=== PATIENT | male | born 1960 | race African-American/Black ===

== ENCOUNTER 2022-04-17 19:56 | Emergency (ER) | payer BC ==
[2022-04-17] MEDS ORDERED: methylPREDNISolone Sod Succ/PF 125 MG/2 ML VIAL ONE ×2 (20:26→20:29)
== END 2022-04-17 21:25 | disposition home or self-care (01) ==
LOC: ERS 19:56
DX: J45.901 Unspecified asthma with (acute) exacerbation (principal); I10 Essential (primary) hypertension; J44.9 Chronic obstructive pulmonary disease, unspecified; F17.220 Nicotine dependence, chewing tobacco, uncomplicated; Z79.899 Other long term (current) drug therapy
CPT/HCPCS: 71045; 96372; J2930; J7620

== ENCOUNTER 2022-05-16 21:01 | Emergency (ER) | payer BC ==
[2022-05-16] MEDS ORDERED: methylPREDNISolone Sod Succ/PF 125 MG/2 ML VIAL ONE (21:33)
== END 2022-05-16 23:15 | disposition home or self-care (01) ==
LOC: ERS 21:01
DX: J44.9 Chronic obstructive pulmonary disease, unspecified (principal); I10 Essential (primary) hypertension; D64.9 Anemia, unspecified; K21.9 Gastro-esophageal reflux disease without esophagitis; Z79.899 Other long term (current) drug therapy
CPT/HCPCS: 71045; 94640; 96374; J2930; J7620

== ENCOUNTER 2022-06-21 14:02 | Outpatient (CLI) | payer BC | END 2022-06-21 14:03 | disposition home or self-care (01) | LOC: RAD 14:02 | PROVIDERS: ATTEND Internal Medicine Critical Care Medicine | DX: R06.00 Dyspnea, unspecified (principal) | CPT/HCPCS: 71046 ==

== ENCOUNTER 2023-12-30 04:39 | Inpatient (IN) | payer BC, OTHER, SELFPAY ==
[2023-12-30] MEDS ORDERED: Ipratropium/Albuterol 3 ML NEB ONE ×2 (04:50→11:22)
[2023-12-30] MEDS ORDERED: methylPREDNISolone Sod Succ/PF 125 MG/2 ML VIAL ONE (04:55)
[2023-12-30 05:20] LABS: #Monocytes 0.4 thou/uL (0.11-0.59); #Neutrophils 11.7 thou/uL (1.40-6.50); %Basophils 0.3 % (0.0-1.0); %Eosinophils 0.2 % (0.0-10.0); %Lymphocytes 2.1 % (21.0-51.0); %Monocytes 3.5 % (0.0-10.0); %Neutrophils 93.6 % (42.0-75.0); Hematocrit 33.3 % (42.0-52.0); Hemoglobin 10.4 g/dL (14.0-18.0); Mean Corpuscular HGB CONC 31.2 g/dL (32.0-36.0); Mean Corpuscular Hemoglobin 24.2 pg (27.0-31.0); Mean Corpuscular Volume 77.4 fl (78.0-98.0); Mean Platelet Volume 9.7 fL (7.4-10.4); Platelet Count 271 10x3/uL (130-400); RBC Distribution Width 16.6 % (11.5-14.5); White Blood Cell (WBC) Count 12.5 10x3/uL (4.8-10.8)
[2023-12-30] MEDS ORDERED: Magnesium 2 GM/50 ML BAG (IN WATER) ONE (05:46)
[2023-12-30] MEDS ORDERED: Albuterol 2.5 MG (3 mL) NEB ONE (05:47)
[2023-12-30] MEDS ORDERED: Ipratropium Bromide 2.5 ml Neb ONE (05:47)
[2023-12-30 05:50] LABS: ALT (SGPT) 16 U/L (8-55); AST (SGOT) 38 U/L (5-34); Albumin 4.3 g/dL (3.4-4.8); Alkaline Phosphatase 71 U/L (40-110); Anion Gap 13 mmol/L (10-20); BUN (Urea Nitrogen) 11 mg/dL (8.4-25.7); Bilirubin, Total 0.6 mg/dL (0.2-1.2); Calc. Creatinine Clearance 0 mL/min (70-130); Calcium 9.3 mg/dL (7.8-10.44); Carbon Dioxide 23 mmol/L (23-31); Chloride 105 mmol/L (98-107); Estimated GFR 78; Globulin 4.1 g/dL (2.4-3.5); Glucose 132 mg/dL (80-115); Potassium 4.3 mmol/L (3.5-5.1); Protein, Total 8.4 g/dL (5.8-8.1); Sodium 137 mmol/L (136-145)
[2023-12-30 07:24] LABS: Analyzer IN Cardio ER; Chloride (VBG) 104 mmol/L (98-106)
[2023-12-30] MEDS ORDERED: Ondansetron ODT 4 MG TAB PO PRN (07:52)
[2023-12-30] MEDS ORDERED: Ondansetron PF 4 MG/2 ML Vial IVP PRN (07:52)
[2023-12-30] MEDS ORDERED: Acetaminophen 325 MG (10.15 ML) UDCUP PO PRN (07:52)
[2023-12-30] MEDS ORDERED: Acetaminophen 650 MG Suppository PR PRN (07:52)
[2023-12-30] MEDS ORDERED: Ipratropium/Albuterol 3 ML NEB NEB PRN (07:52)
[2023-12-30] MEDS ORDERED: Azithromycin 500 MG in Sodium Chloride 0.9% 250 ML 250 ML IVPB SCH (08:00)
[2023-12-30 08:25] VITALS: BMI 27.6
[2023-12-30 08:57] LABS: SARS-CoV-2 NAA Rapid Test Not Detected (NotDetected)
[2023-12-30] MEDS ORDERED: Vancomycin 1 GM in Premix 1 BAG IVPB SCH (09:00)
[2023-12-30 09:16] LABS: Actual Bicarbonate (HCO3a) 22.7 mEq/L (22-28); Analyzer IN Cardio ER; Base Excess (BEa) -1.4 mEq/L (-2.0 to +3.0); CO2 Tension 35.7 mmHg (35.0-45.0); Calcium, Ionized (arterial) 1.16 mmol/L (1.12-1.30); Carboxyhemoglobin (COHb) 0.3 gm% (0.0-3.0); Hematocrit-ABG 32 % (42.0-52.0); Hemoglobin (Hb) 10.8 g/dL (14.0-18.0); Potassium - ABG Lab 3.52 mmol/L (3.70-5.30); pH, Arterial 7.421 (7.35-7.45)
[2023-12-30 09:19] LABS: O2 Tension (PaO2), arterial 55.1 mmHg (> 80.0)
[2023-12-30 09:20] LABS: ALV-art Gradient 149.825 mmHg (0-20); Puncture Site RRA
[2023-12-30] MEDS ORDERED: Lisinopril 20 MG TAB ONE (09:51)
[2023-12-30] MEDS ORDERED: Enoxaparin 40 MG (0.4 mL) SYRINGE ONE (09:52)
[2023-12-30] MEDS ORDERED: Sodium Chloride 0.9% 100 ML ONE (09:52)
[2023-12-30] MEDS ORDERED: cefTRIAXone (ROCEPHIN) 2 GM VIAL ONE (09:52)
[2023-12-30] MEDS: cefTRIAXone\\ROCEPHIN 1 GM in Sodium Chloride 0.9% 100 ML IVPB SCH (09:58)
[2023-12-30] MEDS: cefTRIAXone\\ROCEPHIN 2 GM in Sodium Chloride 0.9% 100 ML IVPB SCH (09:58)
[2023-12-30] MEDS: methylPREDNISolone Sod Succ/PF 125 MG/2 ML VIAL IVP SCH (09:59)
[2023-12-30] MEDS: Enoxaparin 40 MG (0.4 mL) SYRINGE SC SCH (09:59)
[2023-12-30] MEDS: Lisinopril 20 MG TAB PO SCH (10:01)
[2023-12-30] MEDS ORDERED: Oseltamivir 75 MG CAP ONE (10:28)
[2023-12-30] MEDS: Oseltamivir 75 MG CAP PO SCH ×2 (10:35→20:36)
[2023-12-30 11:09] LABS: Actual Bicarbonate (HCO3a) 20.3 mEq/L (22-28); Analyzer IN Cardio ER; Base Excess (BEa) -3.1 mEq/L (-2.0 to +3.0); Calcium, Ionized (arterial) 1.14 mmol/L (1.12-1.30); Carboxyhemoglobin (COHb) 0.3 gm% (0.0-3.0); Hematocrit-ABG 30 % (42.0-52.0); Hemoglobin (Hb) 10.3 g/dL (14.0-18.0); O2 Tension (PaO2), arterial 110.8 mmHg (> 80.0); Potassium - ABG Lab 3.56 mmol/L (3.70-5.30); pH, Arterial 7.435 (7.35-7.45)
[2023-12-30 11:12] LABS: Puncture Site RRA
[2023-12-30] MEDS: Vancomycin (BATCH) 1.25 GM in Premix 1 BAG IVPB SCH (11:15)
[2023-12-30] MEDS: Ipratropium/Albuterol 3 ML NEB NEB SCH ×2 (11:20→15:13)
[2023-12-30] MEDS ORDERED: hydrALAZINE 25 MG TAB ONE (12:00)
[2023-12-30] MEDS ORDERED: Non-Formulary Item 1 EACH (Hydralazine Hcl [Hydralazine Hcl] 50 MG Tablet) PO SCH (12:00)
[2023-12-30] MEDS: hydrALAZINE 25 MG TAB PO SCH (12:11)
[2023-12-30] MEDS ORDERED: Ipratropium/Albuterol 3 ML NEB NEB SCH (13:00)
[2023-12-30] MEDS: Gabapentin 300 MG CAP PO SCH (15:15)
[2023-12-30] MEDS: HYDROCHLOROTHIAZIDE PO SCH (16:08)
[2023-12-30] MEDS: [UNRECOGNIZED DRUG - OTHER] PO SCH (16:08)
[2023-12-30] MEDS: ENALAPRIL PO SCH (16:08)
[2023-12-30 19:19] LABS: pH (venous) 7.369 (7.32-7.43)
[2023-12-30 19:20] LABS: Actual Bicarbonate (HCO3v) 25.1 mEq/L (22-28); Base Excess -0.3 mEq/L (-2.0 to +3.0); Hematocrit-VBG 34 % (42.0-52.0); Hemoglobin (Hb) 11.4 g/dL (12.6-17.4); Potassium (VBG) 8.51 mmol/L (3.70-5.30); Sodium 136 mmol/L (133-146)
[2023-12-30] MEDS: Mometasone 100 MCG/PUFF (1 INHALER) INH SCH (19:27)
[2023-12-30] MEDS: Hydrochlorothiazide 25 MG TAB PO SCH (20:36)
[2023-12-30] MEDS: Lisinopril 5 MG TAB PO SCH (20:37)
[2023-12-31 06:17] LABS: #Monocytes 0.7 thou/uL (0.11-0.59); #Neutrophils 3.2 thou/uL (1.40-6.50); %Basophils 0.7 % (0.0-1.0); %Lymphocytes 7.7 % (21.0-51.0); %Monocytes 16.7 % (0.0-10.0); %Neutrophils 74.4 % (42.0-75.0); Hematocrit 30.5 % (42.0-52.0); Hemoglobin 9.6 g/dL (14.0-18.0); Mean Corpuscular HGB CONC 31.5 g/dL (32.0-36.0); Mean Corpuscular Hemoglobin 24.2 pg (27.0-31.0); Mean Platelet Volume 9.4 fL (7.4-10.4); Platelet Count 229 10x3/uL (130-400); RBC Distribution Width 16.5 % (11.5-14.5); Red Blood Cell (RBC) Count 3.96 mill/uL (4.70-6.10); White Blood Cell (WBC) Count 4.3 10x3/uL (4.8-10.8)
[2023-12-31 07:15] LABS: Anion Gap 12 mmol/L (10-20); BUN (Urea Nitrogen) 11 mg/dL (8.4-25.7); Calc. Creatinine Clearance 83 mL/min (70-130); Carbon Dioxide 23 mmol/L (23-31); Chloride 104 mmol/L (98-107); Estimated GFR 87; Glucose 93 mg/dL (80-115); Potassium 3.5 mmol/L (3.5-5.1); Sodium 135 mmol/L (136-145)
[2023-12-31] MEDS ORDERED: Non-Formulary Item 1 EACH (Fluticasone/Umeclidin/Vilanter [Trelegy Ellipta 200-62.5-25] 1 INH SCH (09:00)
[2023-12-31] MEDS: Terazosin HCl 5 MG CAP PO SCH (10:10)
[2023-12-31] MEDS: methylPREDNISolone Sod Succ/PF 125 MG/2 ML VIAL IVP SCH (17:35)
[2023-12-31 20:04] LABS: Vancomycin, Trough 1.2 ug/mL
[2023-12-31 21:26] LABS: Vancomycin, Random Less than 1.1 ug/mL (See Comment)
[2023-12-31] MEDS: Vancomycin (BATCH) 1.5 GM in Premix 1 BAG IVPB SCH (22:46)
[2024-01-01 00:07] VITALS: TEMP 98.5
[2024-01-01 04:11] LABS: #Monocytes 0.2 thou/uL (0.11-0.59); #Neutrophils 3.8 thou/uL (1.40-6.50); %Monocytes 5.3 % (0.0-10.0); %Neutrophils 87.2 % (42.0-75.0); Hematocrit 30.5 % (42.0-52.0); Hemoglobin 9.7 g/dL (14.0-18.0); Mean Corpuscular HGB CONC 31.8 g/dL (32.0-36.0); Mean Corpuscular Hemoglobin 24.2 pg (27.0-31.0); Mean Corpuscular Volume 76.1 fl (78.0-98.0); Mean Platelet Volume 9.8 fL (7.4-10.4); Platelet Count 258 10x3/uL (130-400); RBC Distribution Width 16.3 % (11.5-14.5); Red Blood Cell (RBC) Count 4.01 mill/uL (4.70-6.10); White Blood Cell (WBC) Count 4.3 10x3/uL (4.8-10.8)
[2024-01-01 04:31] LABS: Anion Gap 13 mmol/L (10-20); BUN (Urea Nitrogen) 15 mg/dL (8.4-25.7); Calc. Creatinine Clearance 77 mL/min (70-130); Calcium 9.3 mg/dL (7.8-10.44); Carbon Dioxide 24 mmol/L (23-31); Chloride 102 mmol/L (98-107); Estimated GFR 79; Glucose 121 mg/dL (80-115); Potassium 3.6 mmol/L (3.5-5.1); Sodium 135 mmol/L (136-145)
[2024-01-01] MEDS: Cefdinir 300 MG CAP PO SCH (10:51)
[2024-01-01 12:45] VITALS: BP 145/69
== END 2024-01-01 14:50 | disposition home or self-care (01) | DRG 193 ==
LOC: ERS 04:39 → ERHOLD 06:51 → IMCU/EMU 15:04 → SURG A 12-31 18:25
PROVIDERS: ADMIT Family Medicine; ATTEND Emergency Medicine
PROC: 5A09357 Assistance with Respiratory Ventilation, Less than 24 Consecutive Hours, Continuous Positive Airway Pressure (ICD-10-PCS; principal; 2023-12-30)
PROC: 4A133R1 Monitoring of Arterial Saturation, Peripheral, Percutaneous Approach (ICD-10-PCS; 2023-12-30)
DX: J10.1 Influenza due to other identified influenza virus with other respiratory manifestations (principal); J96.01 Acute respiratory failure with hypoxia; J44.1 Chronic obstructive pulmonary disease with (acute) exacerbation; I10 Essential (primary) hypertension; K21.9 Gastro-esophageal reflux disease without esophagitis; F17.220 Nicotine dependence, chewing tobacco, uncomplicated; D50.9 Iron deficiency anemia, unspecified
CPT/HCPCS: 36415; 36416; 36600; 71045; 80048; 80053; 80202; 82805; 83605; 83880; 84443; 85025; 85379; 87040; 87081; 93005; 94640; 94660; 96365; 96375; J0696; J1650; J2930; J3370; J3475; J3490; J7611; J7620

== ENCOUNTER 2024-12-07 08:36 | Emergency (ER) | payer MEDICARE, OTHER ==
[2024-12-07] MEDS ORDERED: HYDROcodone/Acetaminophen 10/325 mg Tablet ONE (09:26)
[2024-12-07] MEDS ORDERED: Ketorolac Tromethamine 30 MG (1 mL) VIAL ONE (09:26)
== END 2024-12-07 10:58 | disposition home or self-care (01) ==
LOC: ERS 08:36
DX: S16.1XXA Strain of muscle, fascia and tendon at neck level, initial encounter (principal); R40.2410 Glasgow coma scale score 13-15, unspecified time; J44.9 Chronic obstructive pulmonary disease, unspecified; I10 Essential (primary) hypertension; V89.2XXA Person injured in unspecified motor-vehicle accident, traffic, initial encounter
CPT/HCPCS: 72125; J1885; 96372